=== PATIENT | female | born 1970 | race Caucasian/White ===

== ENCOUNTER → 2016-12-20 | Day surgery (SDC) | payer MEDICARE, MEDICAID ==
[~2016-12-20] MED LIST: BUPIVACAINE HCL 0.5 % INJ/PF 30 ML SDV ONE; METHYLPREDNISOLONE ACETATE INJ 40 MG/1 ML ML ONE
== END ==
LOC: RAD 12:26
PROC: 3E0U33Z Introduction of Anti-inflammatory into Joints, Percutaneous Approach (ICD-10-PCS; principal; 2016-12-20)
DX: M16.0 Bilateral primary osteoarthritis of hip (principal)
CPT/HCPCS: 73501; 20610; 77002; J1020

== ENCOUNTER 2017-01-02 19:37 | Emergency (ER) | payer MEDICARE, MEDICAID ==
[2017-01-02] MEDS ORDERED: AMOXICILLIN TR/POT CLAVULANATE 500-125 MG TAB PO ONE (21:11)
[2017-01-02] MEDS ORDERED: DIPH/PERTUSS(ACELL)/TETANUS VAC/PF 0.5 ML SYR (>=10YO) IM ONE (21:11)
[2017-01-02] MEDS ORDERED: LIDOCAINE 1% INJ-PF (10 MG/ML) 30 ML SDV INJ ONE (21:12)
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
[2017-01-02] MEDS ORDERED: HYDROCODONE/ACETAMINOPHEN 5-325 MG 6 TAB/DSPK PO PRN (21:35)
[2017-01-02 22:58] VITALS: BP 131/86
== END 2017-01-02 22:58 | disposition home or self-care (01) ==
LOC: ER 19:37
PROC: 0HQFXZZ Repair Right Hand Skin, External Approach (ICD-10-PCS; principal; 2017-01-02)
DX: S61.451A Open bite of right hand, initial encounter (principal); W54.0XXA Bitten by dog, initial encounter; F17.210 Nicotine dependence, cigarettes, uncomplicated
CPT/HCPCS: 99283; 90471; 73130; 90715; 12002; A9270 ×2; J3490

== ENCOUNTER 2017-02-03 17:18 | Emergency (ER) | payer MEDICARE, MEDICAID ==
[2017-02-03 17:56] LABS: ABSOLUTE BASOPHILS # (AUTO) 0.1 10^3/uL (0.0-0.2); ABSOLUTE EOSINOPHILS # (AUTO) 0.1 10^3/uL (0.0-0.6); ABSOLUTE LYMPHOCYTES (AUTO) 2.1 10^3/uL (0.5-4.7); ABSOLUTE MONOCYTES (AUTO) 0.7 10^3/uL (0.1-1.4); ABSOLUTE NEUT (AUTO) 7.4 10^3/uL (1.7-8.2); BASOPHILS % (AUTO) 0.5 % (0-2); EOSINOPHILS % (AUTO) 1.3 % (0-6); HEMATOCRIT 45.6 % (36.0-47.0); HEMOGLOBIN 15.4 g/dL (12.0-15.5); HGB HCT DIFFERENCE 0.6; LYMPHOCYTES % (AUTO) 20.3 % (13-45); MEAN CORPUSCULAR HEMOGLOBIN 31.9 pg (27.0-33.4); MEAN CORPUSCULAR HGB CONC 33.7 g/dL (32.0-36.0); MEAN CORPUSCULAR VOLUME 95 fl (80-97); MONOCYTES % (AUTO) 6.8 % (3-13); RED BLOOD COUNT 4.82 10^6/uL (3.72-5.28); RED CELL DISTRIBUTION WIDTH 13.7 % (11.5-14.0); SEGMENTED NEUTROPHILS % (AUTO) 71.1 % (42-78); WHITE BLOOD COUNT 10.4 10^3/uL (4.0-10.5)
[2017-02-03 18:10] LABS: ALANINE AMINOTRANSFERASE 31 U/L (9-52); ALBUMIN 4.1 g/dL (3.5-5.0); ALKALINE PHOSPHATASE 88 U/L (38-126); ANION GAP 11 (5-19); ASPARTATE AMINO TRANSFERASE 21 U/L (14-36); BILIRUBIN,DIRECT 0.4 mg/dL (0.0-0.4); BILIRUBIN,TOTAL 0.6 mg/dL (0.2-1.3); BLOOD UREA NITROGEN 14 mg/dL (7-20); CALCIUM 10.1 mg/dL (8.4-10.2); CARBON DIOXIDE 23 mmol/L (22-30); CHLORIDE 105 mmol/L (98-107); CREATINE KINASE 36 U/L (30-135); CREATININE RESULT 1.06 mg/dL (0.52-1.25); GLUCOSE 213 mg/dL (75-110); POTASSIUM 4.3 mmol/L (3.6-5.0); SODIUM 139.4 mmol/L (137-145); TOTAL PROTEIN 7.2 g/dL (6.3-8.2)
[2017-02-03 18:21] LABS: CREATINE KINASE MB < 0.22 ng/mL (<4.55); TROPONIN I < 0.012 ng/mL
--- NOTE | 2017-02-03 18:22 | EKG REPORT ---
SEVERITY:- BORDERLINE ECG - SINUS TACHYCARDIA BORDERLINE LEFT AXIS DEVIATION NONSPECIFIC LATERAL ST [facility] : Confirmed by: Vishnu Wilder MD 03-Feb-2017 18:21:40
[2017-02-03] MEDS ORDERED: NORMAL SALINE 1000 ML 1,000 ML IV PRN (18:37)
[2017-02-03 18:40] LABS: THYROID STIMULATING HORMONE 1.21 uIU/mL (0.47-4.68)
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
[2017-02-03 20:09] LABS: APPEARANCE,URINE SLIGHTLY-CLOUDY; BILIRUBIN,URINE NEGATIVE (NEGATIVE); GLUCOSE, URINE NEGATIVE (NEGATIVE); KETONES,URINE NEGATIVE (NEGATIVE); LEUKOCYTE ESTERASE,URINE TRACE (NEGATIVE); NITRITE,URINE NEGATIVE (NEGATIVE); PROTEIN,URINE NEGATIVE (NEGATIVE); URINE SPECIFIC GRAVITY 1.014; UROBILINOGEN,URINE NEGATIVE mg/dL (<2.0)
[2017-02-03] MEDS ORDERED: NORMAL SALINE 1000 ML 1,000 ML IV ONE (20:19)
[2017-02-03 21:14] VITALS: BP 114/82
== END 2017-02-03 22:34 | disposition home or self-care (01) ==
LOC: ER 17:18
DX: R42 Dizziness and giddiness (principal); I95.9 Hypotension, unspecified; R00.0 Tachycardia, unspecified; R53.1 Weakness; R09.89 Other specified symptoms and signs involving the circulatory and respiratory systems; J02.9 Acute pharyngitis, unspecified; R51 Headache; I10 Essential (primary) hypertension; M54.9 Dorsalgia, unspecified; G89.29 Other chronic pain; J45.909 Unspecified asthma, uncomplicated; F17.210 Nicotine dependence, cigarettes, uncomplicated; Z91.048 Other nonmedicinal substance allergy status; Z88.8 Allergy status to other drugs, medicaments and biological substances; Z88.7 Allergy status to serum and vaccine; Z88.5 Allergy status to narcotic agent; Z82.49 Family history of ischemic heart disease and other diseases of the circulatory system
CPT/HCPCS: 93005; 99285; 96360; 96361; 36415; 84439; 82553; 82550; 84443; 85025; 80053; 81001; 84484; 85379; 71020; 71275; 93010; J7030

== ENCOUNTER 2017-03-30 01:47 | Emergency (ER) | payer MEDICARE, MEDICAID ==
[2017-03-30] MEDS ORDERED: NORMAL SALINE 1000 ML 1,000 ML IV ONE (04:52)
--- NOTE | 2017-03-30 05:00 | ER Document Report ---
ED General - General Chief Complaint: Low Blood Pressure Stated Complaint: BLOOD PRESSURE PROBLEM Time Seen by Provider: 03/30/17 04:38 Mode of Arrival: Ambulatory Information source: Patient TRAVEL OUTSIDE OF THE [place] IN LAST 30 DAYS: No - HPI Notes: Patient is a 46-year-old female history of pseudo-bulbar affect disorder, anxiety, chronic pain presents emergency department with report that she recently was doubled on her morphine dose and states that she normally takes her evening clonidine and prazosin and goes to sleep, but she was awake and noticed that she felt extremely lightheaded and dizzy. Upright systolic blood pressure was 87/67. Patient takes her clonidine 0.2 mg and prazosin 1 mg for her anxiety state. Patient denies any accidental overdose Or weight loss or fever or other medication changes. She states her morphine was doubled by her commercial painter related to worsening of her chronic lower back pain. Patient also reports a bedbug exposure in her house, and she has been unable to afford the treatment. She states she has multiple skin bites on her hands and forearms, none of which are actively infected. - Related Data Allergies/Adverse Reactions: adhesive tape [Adhesive Tape] Allergy (Verified 01/02/17 20:06) bismuth subsalicylate [From Pepto-Bismol] Allergy (Verified 01/02/17 20:06) indomethacin [From Indocin] Allergy (Verified 01/02/17 20:06) indomethacin sodium [From Indocin] Allergy (Verified 01/02/17 20:06) Influenza Virus Vaccines [Influenza Virus Vaccine] Allergy (Verified 01/02/17 20 :06) oxycodone HCl [From Percocet] Allergy (Verified 01/02/17 20:06) piroxicam [From Feldene] Allergy (Verified 01/02/17 20:06) VOMITING Past Medical History - General Information source: Patient - Social History Smoking Status: Current Every Day Smoker Frequency of alcohol use: None Drug Abuse: None Lives with: Alone Family History: Reviewed & Not Pertinent, Arthritis - ra, CAD, CVA, Hyperlipidemia, Hypertension, Malignancy Patient has suicidal ideation: No Patient has homicidal ideation: No - Past Medical History Cardiac Medical History: Reports: Hx Hypertension Denies: Hx DVT Pulmonary Medical History: Reports: Hx Asthma - "Chemically induced" Neurological Medical History: Reports: Hx Migraine Renal/ Medical History: Denies: Hx Peritoneal Dialysis GI Medical History: Reports: Hx Gastritis, Hx Gastroesophageal Reflux Disease, Hx Colonoscopy, Hx Endoscopy Musculoskeltal Medical History: Reports Hx Arthritis, Reports Hx Musculoskeletal Deformity - Degenerative disc disease, Reports Hx Musculoskeletal Trauma Psychiatric Medical History: Reports: Hx Anxiety, Hx Bipolar Disorder, Hx Depression, Hx Post Traumatic Stress Disorder Traumatic Medical History: Reports: Hx Fractures - Collarbone ankle toe finger boxer fracture and nose Past Surgical History: Reports: Hx Adenoidectomy, Hx Cholecystectomy, Hx Orthopedic Surgery - right hip, bilateral knees, bilateral hips as a child, Hx Tonsillectomy, Other - 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 - Immunizations Immunizations up to date: Yes Hx Diphtheria, Pertussis, Tetanus Vaccination: Yes - 01/02/2017 Review of Systems - Review of Systems Notes: REVIEW OF SYSTEMS: CONSTITUTIONAL : Denies fever, chills, or sweats. Denies recent illness. EENT: Denies eye, ear, throat, or mouth pain or symptoms. Denies nasal or sinus congestion or discharge. Denies throat, tongue, or mouth swelling or difficulty swallowing. CARDIOVASCULAR: Denies chest pain. Denies palpitations or racing or irregular heart beat. Denies ankle edema. RESPIRATORY: Denies cough, cold, or chest congestion. Denies shortness of breath, difficulty breathing, or wheezing. GASTROINTESTINAL: Denies abdominal pain or distention. Denies nausea, vomiting , or diarrhea. Denies blood in vomitus, stools, or per rectum. Denies black, tarry stools. Denies constipation. GENITOURINARY: Denies difficulty urinating, painful urination, burning, frequency, blood in urine, or discharge. FEMALE GENITOURINARY: Denies vaginal bleeding, heavy or abnormal periods, irregular periods. Denies vaginal discharge or odor. MUSCULOSKELETAL: Denies back or neck pain or stiffness. Denies joint pain or swelling. SKIN: Denies rash, lesions or sores. HEMATOLOGIC : Denies easy bruising or bleeding. LYMPHATIC: Denies swollen, enlarged glands. NEUROLOGICAL: Denies confusion or altered mental status. Denies passing out or loss of consciousness. Denies headache. Denies weakness or paralysis or loss of use of either side. Denies problems with gait or speech. Denies sensory loss, numbness, or tingling. Denies seizures. PSYCHIATRIC: Denies stress. Denies depression, suicidal ideation, or homicidal ideation. ALL OTHER SYSTEMS REVIEWED AND NEGATIVE. Dictation was performed using [employer] voice recognition software Physical Exam - Vital signs Vitals: Temp Pulse Resp BP Pulse Ox 97.9 F 109 H 20 115/67 97 03/30/17 01:50 03/30/17 01:50 03/30/17 01:50 03/30/17 01:50 03/30/17 01:50 - Notes Notes: PHYSICAL EXAMINATION: GENERAL: Well-appearing, well-nourished and in no acute distress. HEAD: Atraumatic, normocephalic. EYES: Pupils equal round and reactive to light, extraocular movements intact, conjunctiva are normal. ENT: Nares patent, oropharynx clear without exudates. Moist mucous membranes. NECK: Normal range of motion, supple without lymphadenopathy. No carotid bruits. LUNGS: Breath sounds clear to auscultation bilaterally and equal. No wheezes rales or rhonchi. HEART: Regular rate and rhythm without murmurs ABDOMEN: Soft, nontender, nondistended abdomen. No guarding, no rebound. No masses appreciated. Female : deferred Musculoskeletal: Normal range of motion, no pitting or edema. No cyanosis. NEUROLOGICAL: Cranial nerves grossly intact. Normal speech, normal gait. Normal sensory, motor exams. No cerebellar ataxia. PSYCH: Normal mood, normal affect. SKIN: Warm, Dry, normal turgor. Residual insect bites on the forearms and hands from bedbugs. No active evidence for infection or abscess. Course - Re-evaluation Re-evalutation: 03/30/17 05:02 Blood pressure was 87/67 on the upright exam. The patient felt lightheaded associated with this. Patient will be rehydrated with normal saline, and must rule out anemia versus electrolyte imbalance versus urinary tract infection versus dehydration as etiology. There is no bradycardia, and suggestion is that the patient needs to be cut back on her clonidine and prazosin and scaled back on her morphine related to secondary hypotension. - Vital Signs Vital signs: Temp Pulse Resp BP Pulse Ox 97.9 F 75 20 101/65 97 03/30/17 01:50 03/30/17 03:40 03/30/17 01:50 03/30/17 03:40 03/30/17 01:50 - Laboratory Result Diagrams: 03/30/17 05:19 03/30/17 05:19 Discharge - Discharge Clinical Impression: Hypotension Qualifiers: Hypotension type: unspecified hypotension type Qualified Code(s): I95.9 - Hypotension, unspecified Bedbug bite Qualifiers: Encounter type: initial encounter Qualified Code(s): W57.XXXA - Bitten or stung by nonvenomous insect and other nonvenomous arthropods, initial encounter Condition: Stable Disposition: HOME, SELF-CARE Instructions: Hypotension ([facility]) Additional Instructions: Cut back on your prazosin from 1 mg in the evening to 0.5 mg in the evening. Cut back on your clonidine from 0.2 mg in the evening to 0.1 mg in the evening. Recommend cutting back your morphine dose due to hypotension. Drink plenty of fluids. Stand up slowly. Referrals: VERENICE BROWN PA-C [Primary Care Provider] - Follow up as needed
[2017-03-30 05:36] LABS: ABSOLUTE EOSINOPHILS # (AUTO) 0.2 10^3/uL (0.0-0.6); ABSOLUTE LYMPHOCYTES (AUTO) 2.5 10^3/uL (0.5-4.7); ABSOLUTE MONOCYTES (AUTO) 0.7 10^3/uL (0.1-1.4); ABSOLUTE NEUT (AUTO) 4.9 10^3/uL (1.7-8.2); BASOPHILS % (AUTO) 0.6 % (0-2); EOSINOPHILS % (AUTO) 2.7 % (0-6); HEMOGLOBIN 14.6 g/dL (12.0-15.5); HGB HCT DIFFERENCE -0.2; LYMPHOCYTES % (AUTO) 29.6 % (13-45); MEAN CORPUSCULAR HEMOGLOBIN 31.7 pg (27.0-33.4); MEAN CORPUSCULAR HGB CONC 33.1 g/dL (32.0-36.0); MEAN CORPUSCULAR VOLUME 96 fl (80-97); MONOCYTES % (AUTO) 7.9 % (3-13); RED CELL DISTRIBUTION WIDTH 13.1 % (11.5-14.0); SEGMENTED NEUTROPHILS % (AUTO) 59.2 % (42-78); WHITE BLOOD COUNT 8.4 10^3/uL (4.0-10.5)
[2017-03-30 05:51] LABS: ALANINE AMINOTRANSFERASE 29 U/L (9-52); ALBUMIN 4.2 g/dL (3.5-5.0); ALKALINE PHOSPHATASE 94 U/L (38-126); ANION GAP 9 (5-19); ASPARTATE AMINO TRANSFERASE 28 U/L (14-36); BILIRUBIN,DIRECT 0.4 mg/dL (0.0-0.4); BILIRUBIN,TOTAL 0.5 mg/dL (0.2-1.3); BLOOD UREA NITROGEN 10 mg/dL (7-20); CARBON DIOXIDE 28 mmol/L (22-30); CHLORIDE 102 mmol/L (98-107); CREATININE RESULT 0.91 mg/dL (0.52-1.25); GLUCOSE 100 mg/dL (75-110); MAGNESIUM 2.3 mg/dL (1.6-2.3); POTASSIUM 4.2 mmol/L (3.6-5.0); SODIUM 139.3 mmol/L (137-145); TOTAL PROTEIN 8.1 g/dL (6.3-8.2)
[2017-03-30 06:21] LABS: THYROID STIMULATING HORMONE 1.68 uIU/mL (0.47-4.68)
[2017-03-30 07:07] LABS: APPEARANCE,URINE CLEAR; BILIRUBIN,URINE NEGATIVE (NEGATIVE); GLUCOSE, URINE NEGATIVE (NEGATIVE); KETONES,URINE NEGATIVE (NEGATIVE); LEUKOCYTE ESTERASE,URINE NEGATIVE (NEGATIVE); NITRITE,URINE NEGATIVE (NEGATIVE); PROTEIN,URINE NEGATIVE (NEGATIVE); URINE SPECIFIC GRAVITY 1.001; UROBILINOGEN,URINE NEGATIVE mg/dL (<2.0)
[2017-03-30 08:07] VITALS: BP 106/70
== END 2017-03-30 08:07 | disposition home or self-care (01) ==
LOC: ER 01:47
DX: I95.9 Hypotension, unspecified (principal); S50.869A Insect bite (nonvenomous) of unspecified forearm, initial encounter; S60.569A Insect bite (nonvenomous) of unspecified hand, initial encounter; W57.XXXA Bitten or stung by nonvenomous insect and other nonvenomous arthropods, initial encounter; F41.9 Anxiety disorder, unspecified; M54.5 Low back pain; R42 Dizziness and giddiness; G89.29 Other chronic pain; I10 Essential (primary) hypertension; J45.909 Unspecified asthma, uncomplicated; F17.200 Nicotine dependence, unspecified, uncomplicated; Z79.891 Long term (current) use of opiate analgesic; Z79.899 Other long term (current) drug therapy; Z91.048 Other nonmedicinal substance allergy status; Z88.8 Allergy status to other drugs, medicaments and biological substances; Z88.7 Allergy status to serum and vaccine; Z88.5 Allergy status to narcotic agent
CPT/HCPCS: 99284; 96361; 36415; 84439; 83735; 84443; 85025; 81025; 80053; 81001; J7030

== ENCOUNTER → 2017-05-01 | Outpatient (CLI) | payer MEDICARE, MEDICAID ==
--- NOTE | 2017-05-02 08:29 | RADIOLOGY REPORT (SQ) ---
EXAM DESCRIPTION: MRI HEAD COMBO COMPLETED DATE/TIME: 05/01/2017 8:21 pm REASON FOR STUDY: Obstructive sleep apnea (adult),Repeated falls,Unspecified abnormalities of G47.33 OBSTRUCTIVE SLEEP APNEA (ADULT) (PEDIATRIC) COMPARISON: None. TECHNIQUE: Multiplanar imaging includes noncontrasted T1, T2, FLAIR, diffusion with ADC map and post gadolinium contrast T1 sequences. Images stored on PACS. CONTRAST TYPE AND DOSE: 20 mL Multihance. RENAL FUNCTION: GFR > 60. LIMITATIONS: None. FINDINGS: ANATOMY: No anomalies. Normal vascular flow voids. Pituitary fossa normal. CSF SPACES: Normal in size and contour. No hemorrhage. CEREBRUM: Sulci and gyri normal in size and contour. Normal white matter signal on FLAIR imaging. No evidence of hemorrhage, mass, or extraaxial fluid collection. No abnormal enhancement post contrast. POSTERIOR FOSSA: No signal alteration. No hemorrhage. No edema, masses, or mass effect. Internal angus tory canals, cerebellopontine angles, mastoids normal. No enhancing lesions. No abnormal enhancement post contrast. DIFFUSION IMAGING: Negative for acute or subacute infarction. ORBITS: No masses. Globes normal. PARANASAL SINUSES: Small amount of fluid noted within the the right mastoid air cells. Paranasal sin uses are otherwise clear. OTHER: No other significant finding. IMPRESSION: No acute intracranial abnormality identified. No enhancing mass lesions. No significan t abnormality identified. Small mild fluid noted in the right mastoid air cells. EVIDENCE OF ACUTE STROKE: NO. TECHNICAL DOCUMENTATION: JOB ID: [id number] [employer]- All Rights Reserved
== END ==
LOC: RAD 18:49
PROVIDERS: ATTEND Specialist
DX: G47.33 Obstructive sleep apnea (adult) (pediatric) (principal); R29.6 Repeated falls; R26.9 Unspecified abnormalities of gait and mobility
CPT/HCPCS: 70553; A9577

== ENCOUNTER → 2017-05-24 | Outpatient (CLI) | payer MEDICARE, MEDICAID ==
--- NOTE | 2017-05-24 10:17 | RADIOLOGY REPORT (SQ) ---
EXAM DESCRIPTION: SHOULDER LEFT 2 OR MORE VIEWS COMPLETED DATE/TIME: 05/24/2017 8:40 am REASON FOR STUDY: PAIN IN LEFT SHOULDER M25.512 PAIN IN LEFT SHOULDER COMPARISON: CT angio chest 02/03/2017 NUMBER OF VIEWS: Three views. TECHNIQUE: Internal rotation, external rotation, and Y view images acquired of the left shoulder. LIMITATIONS: None. FINDINGS: MINERALIZATION: Osteopenic BONES: No acute fracture or dislocation. No worrisome bone lesions. JOINTS: No glenohumeral dislocation. No widening or bulky bony spurring at the left acromioclavicula r joint. VISUALIZED LUNGS AND RIBS: No pneumothorax. No rib fracture. SOFT TISSUES: No radiopaque foreign body. OTHER: No other significant finding. IMPRESSION: NEGATIVE STUDY OF THE LEFT SHOULDER. NO RADIOGRAPHIC EVIDENCE OF ACUTE INJURY. TECHNICAL DOCUMENTATION: JOB ID: [id number] [employer]- All Rights Reserved
== END ==
LOC: OD 08:27
PROVIDERS: ATTEND Physician Assistant
DX: M25.512 Pain in left shoulder (principal)

== ENCOUNTER → 2017-07-06 | Outpatient (CLI) | payer MEDICARE, MEDICAID ==
--- NOTE | 2017-07-07 02:07 | EKG REPORT ---
SEVERITY:- ABNORMAL ECG - SINUS TACHYCARDIA NONSPECIFIC T ABNORMALITIES, LATERAL LEADS : Confirmed by: Merissa Carey MD 07-Jul-2017 02:06:53
== END ==
LOC: OD 15:04
PROVIDERS: ATTEND Physician Assistant
DX: R00.0 Tachycardia, unspecified (principal)
CPT/HCPCS: 93005; 93010

== ENCOUNTER 2017-07-13 18:59 | Emergency (ER) | payer MEDICARE, MEDICAID ==
[2017-07-13 19:02] VITALS: BP 126/81
--- NOTE | 2017-07-13 19:46 | ER Document Report ---
ED Extremity Problem, Lower - General Chief Complaint: Knee Pain Stated Complaint: LEFT KNEE PAIN Time Seen by Provider: 07/13/17 19:34 Mode of Arrival: Ambulatory Information source: Patient Notes: 46-year-old female presents to ED for complaint of left knee pain that started this morning when she woke up. She denies any injuries to the knee. There is a catch in the knee when she bends and straightens her knee. She has had previous surgeries to this knee. TRAVEL OUTSIDE OF THE [place] IN LAST 30 DAYS: No - HPI Patient complains to provider of: Pain, Swelling. No: Injury Location: Knee - Left Occurred: This morning Where: Home, Indoors Onset/Duration: Sudden Quality of pain: Achy, Sharp Severity: Moderate Pain Level: 4 Recent injury: No Associated symptoms: Painful ambulation, Other - Feel pop when she straightens her knee Exacerbated by: Movement, Walking Relieved by: Elevation, Ice - Related Data Allergies/Adverse Reactions: adhesive tape [Adhesive Tape] Allergy (Verified 07/13/17 19:00) bismuth subsalicylate [From Pepto-Bismol] Allergy (Verified 07/13/17 19:00) indomethacin [From Indocin] Allergy (Verified 07/13/17 19:00) indomethacin sodium [From Indocin] Allergy (Verified 07/13/17 19:00) Influenza Virus Vaccines [Influenza Virus Vaccine] Allergy (Verified 07/13/17 19 :00) oxycodone HCl [From Percocet] Allergy (Verified 07/13/17 19:00) piroxicam [From Feldene] Allergy (Verified 07/13/17 19:00) VOMITING Past Medical History - General Information source: Patient - Social History Smoking Status: Former Smoker Cigarette use (# per day): No Chew tobacco use (# tins/day): No Smoking Education Provided: No Frequency of alcohol use: Rare Drug Abuse: None Occupation: None Lives with: Friend Family History: Arthritis - ra, CAD, CVA, Hyperlipidemia, Hypertension, Malignancy. denies: COPD, Thyroid Disfunction Patient has suicidal ideation: No Patient has homicidal ideation: No - Past Medical History Cardiac Medical History: Reports: Hx Hypertension Pulmonary Medical History: Reports: Hx Asthma - "Chemically induced", Hx Bronchitis, Hx Pneumonia EENT Medical History: Reports: None Neurological Medical History: Reports: Hx Migraine Endocrine Medical History: Reports: None Renal/ Medical History: Reports: None Malignancy Medical History: Reports: None GI Medical History: Reports: Hx Gastritis, Hx Gastroesophageal Reflux Disease Musculoskeltal Medical History: Reports Hx Arthritis, Reports Hx Musculoskeletal Deformity - Degenerative disc disease, Reports Hx Musculoskeletal Trauma Skin Medical History: Reports None Psychiatric Medical History: Reports: Hx Anxiety, Hx Attention Deficit Hyperactivity Disorder, Hx Bipolar Disorder, Hx Depression, Hx Obsessive Compulsive Disorder, Hx Post Traumatic Stress Disorder Traumatic Medical History: Reports: Hx Fractures - Collarbone ankle toe finger boxer fracture and nose, Hx Traumatic Brain Injury Past Surgical History: Reports: Hx Adenoidectomy, Hx Cholecystectomy, Hx Oral Surgery - Most wisdom teeth pulled one wisdom tooth surgically removed, Hx Orthopedic Surgery - right hip, bilateral knees, bilateral hips as a child, Hx Tonsillectomy, Other - 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 - Immunizations Immunizations up to date: Yes Hx Diphtheria, Pertussis, Tetanus Vaccination: Yes - 01/02/2017 Review of Systems - Review of Systems Constitutional: No symptoms reported EENT: No symptoms reported Cardiovascular: No symptoms reported Respiratory: No symptoms reported Gastrointestinal: No symptoms reported Genitourinary: No symptoms reported Female Genitourinary: No symptoms reported Musculoskeletal: Joint pain - Left knee pain swelling, Joint swelling Skin: No symptoms reported Hematologic/Lymphatic: No symptoms reported Neurological/Psychological: No symptoms reported Physical Exam - Vital signs Vitals: Temp Pulse Resp BP Pulse Ox 98.5 F 107 H 18 126/81 H 96 07/13/17 19:00 07/13/17 19:00 07/13/17 19:00 07/13/17 19:00 07/13/17 19:00 Interpretation: Normal - General General appearance: Appears well, Alert - HEENT Head: Normocephalic, Atraumatic Eyes: Normal Pupils: PERRL - Respiratory Respiratory status: No respiratory distress Chest status: Nontender Breath sounds: Normal Chest palpation: Normal - Cardiovascular Rhythm: Regular Heart sounds: Normal auscultation Murmur: No - Abdominal Inspection: Normal Distension: No distension Bowel sounds: Normal Tenderness: Nontender Organomegaly: No organomegaly - Back Back: Normal, Nontender - Extremities General upper extremity: Normal inspection, Nontender, Normal color, Normal ROM , Normal temperature General lower extremity: Normal color, Normal temperature, Normal weight bearing. No: Dionne's sign Knee: Tender, Pain with ROM, Patellar tendon intact, Other - Popping felt when straightened left knee. No: Abrasion, Deformity, Dislocation, Drawer's test instability, Instability, Joint effusion, Laceration, Laxity with valgus stress , Laxity with varus stress, Popliteal fossa tender - Neurological Neuro grossly intact: Yes Cognition: Normal Orientation: AAOx4 Sugey Coma Scale Eye Opening: Spontaneous Sugey Coma Scale Verbal: Oriented Sugey Coma Scale Motor: Obeys Commands Sugey Coma Scale Total: 15 Speech: Normal Motor strength normal: LUE, RUE, LLE, RLE Sensory: Normal - Psychological Associated symptoms: Normal affect, Normal mood - Skin Skin Temperature: Warm Skin Moisture: Dry Skin Color: Normal Course - Re-evaluation Re-evalutation: 07/13/17 21:11 Patient states she has got pain medicine and ibuprofen at home she does not need either of these. Patient states she is able to walk on her knee and does not need crutches. Patient will follow up with her own orthopedic who she is supposed to see next week. - Vital Signs Vital signs: Temp Pulse Resp BP Pulse Ox 98.5 F 107 H 18 126/81 H 96 07/13/17 19:00 07/13/17 19:00 07/13/17 19:00 07/13/17 19:00 07/13/17 19:00 - Diagnostic Test Radiology reviewed: Image reviewed, Reports reviewed Discharge - Discharge Clinical Impression: Left knee arthritis tricompartmental Condition: Stable Disposition: HOME, SELF-CARE Additional Instructions: Arthritis Your symptoms are due to arthritis. Arthritis is an inflammation of the joints. There are many types -- osteoarthritis (due to "wear and tear"), auto- immmune arthritis (such as rheumatoid, lupus, Madhavi's, and others), and crystal -induced arthritis (such as gout and pseudogout). The physician's examination, combined with laboratory tests, will determine the cause of your arthritis. All types of arthritis are treated with antiinflammatory medications. Other medication may be required for special types of arthritis, or if your problem does not respond to the antiinflammatory medicine. Local warmth may be helpful. Move the involved joints through the full range of motion daily. Mild exercise is usually still possible for most persons with arthritis (ask your physician). Swimming provides good exercise without damaging the joints. Contact the physician if you are worsening in any way. You were seen today for left knee pain and swelling. You have according to the x-ray arthritis in this knee with the effusion. You will need to take your arthritis medicine for the pain FOLLOW-UP CARE: If you have been referred to a physician for follow-up care, call the physician s office for an appointment as you were instructed or within the next two days. If you experience worsening or a significant change in your symptoms, notify the physician immediately or return to the Emergency Department at any time for re-evaluation. Forms: Elevated Blood Pressure Referrals: VERENICE BROWN PA-C [Primary Care Provider] - Follow up as needed DAVID PATEL MD [ACTIVE STAFF] - Follow up as needed
--- NOTE | 2017-07-13 20:13 | RADIOLOGY REPORT (SQ) ---
EXAM DESCRIPTION: KNEE LEFT 4 VIEW COMPLETED DATE/TIME: 07/13/2017 8:03 pm REASON FOR STUDY: pain swelling COMPARISON: None. NUMBER OF VIEWS: Four views. TECHNIQUE: AP, lateral, and both oblique radiographic images acquired of the left knee. LIMITATIONS: None. FINDINGS: MINERALIZATION: Normal. BONES: No acute fracture or dislocation. No worrisome bone lesions. JOINT: Mild osteoarthritis of the patellofemoral and medial tibiofemoral compartments. Small to mode rate joint effusion. SOFT TISSUES: No soft tissue swelling. No radio-opaque foreign body. OTHER: No other significant finding. IMPRESSION: MILD TRICOMPARTMENTAL OSTEOARTHRITIS WITH SMALL TO MODERATE JOINT EFFUSION. NO ACUTE OS SEOUS ABNORMALITY. TECHNICAL DOCUMENTATION: JOB ID: [id number] [employer]- All Rights Reserved
== END 2017-07-13 20:55 | disposition home or self-care (01) ==
LOC: ER 18:59
DX: M25.562 Pain in left knee (principal); M17.12 Unilateral primary osteoarthritis, left knee; I10 Essential (primary) hypertension; Z90.49 Acquired absence of other specified parts of digestive tract
CPT/HCPCS: 99283

== ENCOUNTER → 2017-09-20 | Day surgery (SDC) | payer MEDICARE, MEDICAID ==
--- NOTE | 2017-09-20 15:30 | RADIOLOGY REPORT (SQ) ---
EXAM DESCRIPTION: ARTHRO SHOULDER; FLUORO/NEEDLE PLACEMENT COMPLETED DATE/TIME: 09/20/2017 2:53 pm REASON FOR STUDY: BURSITIS OF LEFT SHOULDER M75.52 BURSITIS OF LEFT SHOULDER COMPARISON: None. FLUOROSCOPY TIME: 44 seconds 2 digital left shoulder radiographic images saved to PACS. LIMITATIONS: None. PROCEDURE: Procedure, risks, benefits and alternatives explained to patient who then gave written co nsent. The posterior left shoulder was marked and a time out was called for correct procedure verific ation. Posterior entry site marked using fluoroscopic guidance. Shoulder prepped and draped using s terile technique. Local anesthesia achieved using 1% lidocaine injection. Hypodermic needle introdu brandon into the joint space under direct fluoroscopic visualization. Non-ionic contrast instilled to con firm intra-articular position. Dilute gadolinium solution then injected. Needle removed and entry si te covered with sterile bandage. No immediate complications noted. TECHNIQUE: Digital images acquired during fluoroscopy and stored on PACS. Patient immediately take n to the MR suite for additional imaging. INJECTION LOCATION: Posterior left shoulder. CONTRAST TYPE AND AMOUNT: 2 mL of Isovue-300 was injected to confirm intra-articular needle placement followed by 9 mL of dilute gadolinium for MR arthrogram IMPRESSION: SUCCESSFUL NEEDLE PLACEMENT AND INJECTION FOR LEFT SHOULDER MR ARTHROGRAM USING POSTERIO R APPROACH. COMMENT: Quality ID [id number]: Final reports for procedures using fluoroscopy that document radiation exp osure indices, or exposure time and number of fluorographic images (if radiation exposure indices are not available) TECHNICAL DOCUMENTATION: JOB ID: [id number] [employer]- All Rights Reserved
--- NOTE | 2017-09-20 16:38 | RADIOLOGY REPORT (SQ) ---
EXAM DESCRIPTION: MRI LT UPPER JOINT WITH COMPLETED DATE/TIME: 09/20/2017 3:36 pm REASON FOR STUDY: BURSITIS OF LEFT SHOULDER M75.52 BURSITIS OF LEFT SHOULDER COMPARISON: None. TECHNIQUE: Left shoulder images acquired and stored on PACS. Oblique coronal, oblique sagittal, and axial imaging to include fat sensitive sequences as T1, water sensitive sequences as FST2/STIR, and c ontrast sensitive sequences as FST1. LIMITATIONS: Positioning. Excessive patient movement in the scanner. FINDINGS: JOINT DISTENTION: Adequate distention for interpretation. Contrast in the subacromial bur sa. BONE MARROW AND CORTEX: Normal. No significant osteophytes. No edema or defects. AC JOINT: Type 1 acromion. Mild AC joint arthropathy. GLENOHUMERAL JOINT: Intact. ROTATOR CUFF: Partial width full-thickness tear of the supraspinatus. Increase intrasubstance signal in the infraspinatus. Subscapularis intact. Teres minor intact. LABRUM AND BICEPS LABRAL COMPLEX: Increased signal in the superior labrum suspicious for a slap tear. This is difficult to further characterize due to the degree of motion. No obvious significant exte nsion into the biceps. Distal biceps intact. INFERIOR LABRAL COMPLEX: Intact. ADJACENT SOFT TISSUES: No masses or nodes. OTHER: No other significant finding. IMPRESSION: Technical limitations due to considerable motion. Partial width full-thickness tear of the supraspinatus. Intrasubstance tear infraspinatus. Slap tear without significant extension into the biceps. TECHNICAL DOCUMENTATION: JOB ID: [id number] [employer]- All Rights Reserved
== END ==
LOC: RAD 14:02
PROVIDERS: ATTEND Orthopaedic Surgery
PROC: BP09ZZZ Plain Radiography of Left Shoulder (ICD-10-PCS; principal; 2017-09-20)
DX: M75.52 Bursitis of left shoulder (principal); M75.122 Complete rotator cuff tear or rupture of left shoulder, not specified as traumatic; S43.432A Superior glenoid labrum lesion of left shoulder, initial encounter; X58.XXXA Exposure to other specified factors, initial encounter
CPT/HCPCS: 73222; 73040; 77002; A9576

== ENCOUNTER → 2017-11-12 | Outpatient (CLI) | payer MEDICARE, MEDICAID ==
--- NOTE | 2017-11-13 06:20 | WOMENS IMAGING REPORT ---
EXAM DESCRIPTION: 3D SCREENING MAMMO BILAT COMPLETED DATE/TIME: 11/12/2017 10:56 am REASON FOR STUDY: ROUTINE SCREENING; Z12.31 Z12.31 ENCNTR SCREEN MAMMOGRAM FOR MALIGNANT NEOPLASM O F VON COMPARISON: 03/23/2016. TECHNIQUE: Standard craniocaudal and mediolateral oblique views of each breast recorded using digita l acquisition and breast tomosynthesis. LIMITATIONS: None. FINDINGS: No masses, calcifications or architectural distortion. No areas of suspicion. Read with the assistance of CAD. .[facility] - R2 Cenova Version 1.3 .[facility] Imaging - R2 Cenova Version 1.3 .[facility] Imaging - R2 Cenova Version 2.4 .[facility] [place] Cenova Version 2.4 .[facility] - R2 [employer] Version 9.2 IMPRESSION: NORMAL MAMMOGRAM. BIRADS 1. BREAST DENSITY: a. The breasts are almost entirely fatty. BIRAD: 1 NEGATIVE RECOMMENDATION: ROUTINE SCREENING COMMENT: The patient has been notified of the results by letter per SA requirements. Additional no tification policies are in place for contacting patient with suspicious or incomplete findings. Quality ID #225: The [employer] recommends an annual screening mammogram for women aged 40 years or over. This facility utilizes a reminder system to ensure that all patients receive reminder letters, and/or direct phone calls for appointments. This includes reminders for routine scr eening mammograms, diagnostic mammograms, or other Breast Imaging Interventions when appropriate. Th is patient will be placed in the appropriate reminder system. The [employer] (ACR) has developed recommendations for screening MRI of the breast s in certain patient populations, to be used in conjunction with mammography. Breast MRI surveillanc e may be appropriate for women with more than 20% lifetime risk of developing breast cancer as deter mined by genetic testing, significant family history of the disease, or history of mantle radiation f or Hodgkins Disease. ACR Practice Guidelines 2008. DBT Technology DBT is a type of tomographic mammography. With conventional mammography, overlapping breast tissue ma y make lesions difficult to detect, even with good compression. DBT uses an x-ray tube that rotates a round the breast, taking images at different angles. These images are then combined to create thin sl ices of the breast that the radiologist can view as a 3D reconstruction. The [employer] unit can perform full-field digital mammograms (2D imaging); or DBT (3D imaging); or both, in a combination mode that quickly performs both the mammogram and the tomosynthesis scan while the breast is still compressed. PQRS 6045F: Fluoroscopic imaging is not utilized for breast tomosynthesis. TECHNICAL DOCUMENTATION: FINDING NUMBER: (1) ASSESSMENT: (1) JOB ID: [id number] [employer]- All Rights Reserved
== END ==
LOC: WI 10:28
PROVIDERS: ATTEND Physician Assistant
DX: Z12.31 Encounter for screening mammogram for malignant neoplasm of breast (principal)
CPT/HCPCS: 77063; 77067

== ENCOUNTER 2017-11-20 08:07 | Day surgery (SDC) | payer MEDICARE, MEDICAID ==
[2017-11-14 10:00] LABS: APPEARANCE,URINE SLIGHTLY-CLOUDY; BILIRUBIN,URINE NEGATIVE (NEGATIVE); COLOR,URINE YELLOW; GLUCOSE, URINE NEGATIVE (NEGATIVE); KETONES,URINE NEGATIVE (NEGATIVE); LEUKOCYTE ESTERASE,URINE LARGE (NEGATIVE); NITRITE,URINE NEGATIVE (NEGATIVE); PROTEIN,URINE NEGATIVE (NEGATIVE); URINE SPECIFIC GRAVITY 1.019; UROBILINOGEN,URINE NEGATIVE mg/dL (<2.0)
[2017-11-14 10:44] LABS: ABSOLUTE EOSINOPHILS # (AUTO) 0.3 10^3/uL (0.0-0.6); ABSOLUTE LYMPHOCYTES (AUTO) 2.6 10^3/uL (0.5-4.7); ABSOLUTE MONOCYTES (AUTO) 0.8 10^3/uL (0.1-1.4); ABSOLUTE NEUT (AUTO) 5.8 10^3/uL (1.7-8.2); BASOPHILS % (AUTO) 0.3 % (0-2); EOSINOPHILS % (AUTO) 3.1 % (0-6); HEMATOCRIT 42.1 % (36.0-47.0); HEMOGLOBIN 14.2 g/dL (12.0-15.5); LYMPHOCYTES % (AUTO) 27.4 % (13-45); MEAN CORPUSCULAR HEMOGLOBIN 31.1 pg (27.0-33.4); MEAN CORPUSCULAR HGB CONC 33.6 g/dL (32.0-36.0); MEAN CORPUSCULAR VOLUME 93 fl (80-97); MONOCYTES % (AUTO) 8.5 % (3-13); PLATELET COUNT 258 10^3/uL (150-450); RED BLOOD COUNT 4.54 10^6/uL (3.72-5.28); RED CELL DISTRIBUTION WIDTH 12.9 % (11.5-14.0); SEGMENTED NEUTROPHILS % (AUTO) 60.7 % (42-78); TOTAL CELLS COUNTED % (AUTO) 100 %; WHITE BLOOD COUNT 9.6 10^3/uL (4.0-10.5)
[2017-11-14 11:07] LABS: ANION GAP 8 (5-19); BLOOD UREA NITROGEN 15 mg/dL (7-20); CALCIUM 11.1 mg/dL (8.4-10.2); CARBON DIOXIDE 26 mmol/L (22-30); CHLORIDE 103 mmol/L (98-107); GLUCOSE 101 mg/dL (75-110); POTASSIUM 5.1 mmol/L (3.6-5.0); SODIUM 137.4 mmol/L (137-145)
--- NOTE | 2017-11-14 11:33 | RADIOLOGY REPORT (SQ) ---
EXAM DESCRIPTION: CHEST PA/LATERAL COMPLETED DATE/TIME: 11/14/2017 10:17 am REASON FOR STUDY: PRE OP COMPARISON: [address] TECHNIQUE: Frontal and lateral radiographic views of the chest acquired. NUMBER OF VIEWS: Two view. LIMITATIONS: None. FINDINGS: LUNGS AND PLEURA: Chronic calcified nodules in the right lung. Chronic calcified hilar no kellen. No developing opacities or acute abnormality. MEDIASTINUM AND HILAR STRUCTURES: No masses or contour abnormalities. HEART AND VASCULAR STRUCTURES: Heart normal size. No evidence for failure. BONES: No acute findings. HARDWARE: None in the chest. OTHER: No other significant finding. IMPRESSION: Evidence of previous granulomatous disease, chronic change. No acute or suspicious find ings. TECHNICAL DOCUMENTATION: JOB ID: [id number] [employer]- All Rights Reserved
--- NOTE | 2017-11-15 08:55 | EKG REPORT ---
SEVERITY:- NORMAL ECG - SINUS RHYTHM : Confirmed by: Mika Byrd 15-Nov-2017 08:54:45
[~2017-11-20 08:07] MED LIST changes: -BUPIVACAINE HCL 0.5 % INJ/PF 30 ML SDV ONE; +CEFAZOLIN 2 GM/D5W RTU 2 GM/50 ML RTUPB IV PRN; +LACTATED RINGERS 1000 ML IV PRN; +LIDOCAINE 0.5% INJ-PF (5 MG/ML) 50 ML SDV SUBCUT PRN; -METHYLPREDNISOLONE ACETATE INJ 40 MG/1 ML ML ONE; +RINGERS SOLUTION,LACTATED 1,000 ML IV PRN
[2017-11-20] MEDS ORDERED: FAMOTIDINE INJ/PF 20 MG/2 ML SDV IV ONE (09:11)
[2017-11-20] MEDS ORDERED: METOCLOPRAMIDE HCL INJ/PF 10 MG/2 ML SDV ONE (09:12)
[2017-11-20] MEDS ORDERED: ALBUTEROL SULFATE 0.083% NEB 2.5 MG/3 ML AMPUL NEB ONE (09:18)
[2017-11-20] MEDS ORDERED: MIDAZOLAM 2 MG/2 ML INJ ONE ×3 (09:24→11:31)
[2017-11-20] MEDS ORDERED: SCOPOLAMINE HYDROBROMIDE 1.5 MG PATCH.TD72 ONE (09:25)
[2017-11-20] MEDS ORDERED: BUPIVACAINE HCL 0.5 % INJ/PF 30 ML SDV ONE (09:48)
[2017-11-20] MEDS ORDERED: EPINEPHRINE INJ/PF 1 MG/1 ML AMPULE ONE (09:48)
[2017-11-20] MEDS ORDERED: HYDROMORPHONE HCL INJ/PF 2 MG/ML AMPULE ONE (10:13)
[2017-11-20] MEDS ORDERED: FENTANYL CITRATE INJ/PF 250 MCG/5 ML AMPULE ONE (10:13)
[2017-11-20] MEDS ORDERED: ACETAMINOPHEN 100 ML IV ONE (10:14)
[2017-11-20] MEDS ORDERED: PROPOFOL INJ 200 MG/20 ML VIAL IV ONE (10:14)
[2017-11-20] MEDS ORDERED: DIPHENHYDRAMINE HCL 50 MG/ML VIAL IV PRN (12:10)
[2017-11-20] MEDS ORDERED: MEPERIDINE HCL/PF INJ 25 MG/1 ML DISP.SYRIN IV PRN (12:10)
[2017-11-20] MEDS ORDERED: PROMETHAZINE HCL INJ 25 MG/1 ML VIAL IV PRN (12:10)
[2017-11-20] MEDS ORDERED: FENTANYL CITRATE INJ/PF 100 MCG/2 ML AMPUL IV PRN ×3 (12:10)
--- NOTE | 2017-11-20 13:57 | PDOC DISCHARGE SUMMARY ---
Discharge Summary (SDC) - Discharge Final Diagnosis: Left shoulder rotator cuff tear Date of Surgery: 11/20/17 Condition: Good Treatment or Instructions: Schedule Follow Up w/ Dr. Alirio Rodriguez @ [facility] for Surgery to be seen in 10-14 days or as scheduled [place]: [place]: [place]: May remove dressing on postop day #3, keep incision covered and dry. Ice and elevate May begin finger, wrist and elbow range of motion May remove sling for hygiene purposes Stool softener of choice when on pain medication. Continue pain medication as prescribed by pain management physician Prescriptions: Ketorolac Tromethamine [Toradol 10 mg Tablet] 10 mg PO Q8HP PRN #10 tablet PRN Reason: Referrals: VERENICE BROWN PA-C [Primary Care Provider] - Discharge Diet: As Tolerated Respiratory Treatments at Home: Deep Breathing/Coughing Discharge Activity: No Lifting Over 10 Pounds, No Lifting/Push/Pulling Report the Following to Your Physician Immediately: Unusual Bleeding, Redness, Swelling, Warmth, Increased Soreness, Numbness, Tingling Sensation
--- NOTE | 2017-11-20 14:02 | Operative Report ---
Operative Report DATE OF SURGERY: 11/20/17 PREOPERATIVE DIAGNOSIS: Left shoulder rotator cuff tear POSTOPERATIVE DIAGNOSIS: Same OPERATION: Left shoulder arthroscopy with subacromial decompression/ acromioplasty, arthroscopic rotator cuff repair with subpectoral biceps tenodesis SURGEON: SALEEM ALVAREZ ANESTHESIA: GA COMPLICATIONS: None ESTIMATED BLOOD LOSS: Minimal PROCEDURE: Indication for above procedure: Pleasant 46-year-old female sent to my office with left shoulder discomfort. We attempted conservative measures including activity modification, physical therapy and multiple injections which provided short but not long-term relief. MRI was then obtained demonstrating partial width but full-thickness rotator cuff tear. At that point we discussed treatment options including operative versus nonoperative intervention. Risks and benefits were explained patient verbalized understanding consented for the procedure. Procedure In Detail: Patient was seen and evaluated in the preoperative holding area. The LEFT upper extremity was initialized and marked. Patient received 2g of Ancef IV for bacterial prophylaxis. Patient was taken back to the operative room where transferred to the operative table and placed under general anesthesia. Once they were adequately anesthetized patient was placed in a beachchair position her cervical spine was placed in neutral position bilateral lower extremities carefully padded and nonoperative right upper extremity. A surgical team debriefing was performed ensuring all instrumentation was available, the surgical procedure was discussed with possible concerns reviewed. The upper extremity was prepped with ChloraPrep and draped in a sterile fashion. A timeout was done identifying correct patient, procedure and extremity everyone in attendance agree with this and verbalized no concerns. Posterior lateral portal was established. Arthroscope introduced into the glenohumeral joint. Via triangulation anterior portal was established. There was evidence of significant intra-articular biceps pathology with a SLAP tear which extended into the intra-articular biceps. Biceps tenotomy was performed and later to be converted to a tenodesis. I carefully debrided the labrum. Patient had significant anterior synovitis and a synovectomy was performed. Inspection of the undersurface the rotator cuff demonstrated intact fibers of the infraspinatus with fraying of the anterior aspect of the supraspinatus. No full-thickness tear was appreciated intra-articularly. Examination of the glenohumeral joint demonstrated no evidence of degenerative changes. Arthroscope was placed into the subacromial space and lateral portal established. Subacromial decompression was performed and synovectomy. Patient had significant subacromial bursitis and a large lateral acromial spur with significant fraying and disruption of the rotator cuff along the anterior lateral margin. There is minimal fibers remaining attached along the articular surface and greater than 75% of the rotator cuff was torn along its anterior third. Thus I completed the tear and carefully debrided any nonviable rotator cuff tissue. The coracoacromial ligament was released but not excised. An acromioplasty was performed. Given the location of patient's tear and significant lateral acromial spur this likely contributed to the bursal sided tear. I then debrided the greater tuberosity to cancellus bone to allow healing of the rotator cuff. A second and third incision was made and a swivel lock anchor was placed along the articular margin. This was loaded with FiberWire suture horizontal mattress was placed into the anterior aspect of the rotator cuff. I then placed the sutures into a swivel lock anchor which was then secured into the lateral which successfully brought the anterior rotator cuff tear to its appropriate position. There is no evidence of residual defect within the rotator cuff. There is good stability with shoulder range of motion. At this point I turned to subpectoralis biceps tenodesis. Longitudinal skin incision was made along the inferior third of the pectoralis major. Blunt dissection was performed identifying the inferior border of the pectoralis major. Any peripheral vasculature was carefully coagulated. I then identified the tenotomized long head of the biceps which was retrieved and brought out the wound there is significant tearing likely at the more distal portion of the biceps noted.. The tendon was then secured 2 centimeters distal to the musculotendinous junction with a #2 fiber loop and the remaining diseased portion of the biceps was excised. The Arthrex biceps tenodesis button was then secured to my biceps tendon. Under direct visualization I then cleared an area along the anterior aspect of the humerus and drilled unicortically. The button was then placed into the unicortical hole and the biceps tendon was shuttled to the anterior cortex of the humerus. I then checked stability of the button confirming maximal fixation. Utilizing the free needle one limb of the remaining FiberWire was secured to the biceps providing further fixation. The elbow was then placed through range of motion to ensure appropriate tension of the biceps with flexion and extension. The wound was then copiously irrigated with normal saline. Any peripheral vasculature was carefully coagulated with Bovie cautery. Skin was closed a running subcuticular 3-0 Monocryl suture reinforced with Dermabond and Steri- Strips. Sponge counts, instrument counts, needle counts counts were correct. Patient was then awoken from anesthesia. Transferred from the operating room table to the operating room stretcher. There was no intraoperative complications patient tolerated procedure well stable to PACU. Postoperative plan: Patient will follow-up in the office in 2 weeks. We will begin physical therapy 4 weeks postoperatively as per conservative rotator cuff repair. She will continue the abduction sling as directed.
[2017-11-20] MEDS ORDERED: ONDANSETRON HCL INJ/PF 4 MG/2 ML SDV IV PRN (14:03)
[2017-11-20] MEDS ORDERED: HYDROMORPHONE HCL INJ/PF 2 MG/ML AMPULE IV PRN (14:03)
[2017-11-20] MEDS ORDERED: OXYCODONE-ACETAMINOPHEN 5-325 MG TABLET PO PRN (14:03)
[2017-11-20] MEDS ORDERED: KETOROLAC TROMETHAMINE 60 MG/2 ML SDV ONE (14:27)
[2017-11-20] MEDS ORDERED: ROCURONIUM BROMIDE INJ 50 MG/5 ML VIAL IV ONE (14:27)
[2017-11-20] MEDS ORDERED: LIDOCAINE 2% INJ-PF (20 MG/ML) 2 ML AMPUL ONE (14:27)
[2017-11-20] MEDS ORDERED: DEXAMETHASONE SOD PHOSPHATE INJ 4 MG/1 ML VIAL ONE (14:27)
[2017-11-20] MEDS ORDERED: PHENYLEPHRINE HCL INJ/PF 10 MG/1 ML SDV ONE (14:27)
[2017-11-20] MEDS ORDERED: ONDANSETRON HCL INJ/PF 4 MG/2 ML SDV ONE (14:27)
[2017-11-20] MEDS ORDERED: SUCCINYLCHOLINE CHLORIDE INJ 200 MG/10 ML VIAL ONE (14:27)
[2017-11-20] MEDS: FENTANYL CITRATE INJ/PF 100 MCG/2 ML AMPUL ONE ×2 (15:05→15:10)
[2017-11-20] MEDS ORDERED: HYDROCODONE/ACETAMINOPHEN 5-325 MG TABLET PO PRN (15:40)
[2017-11-20] MEDS ORDERED: PROMETHAZINE HCL INJ 25 MG/1 ML VIAL ONE (15:42)
[2017-11-20 17:57] VITALS: BP 126/72
== END 2017-11-20 17:45 | disposition home or self-care (01) ==
LOC: OROUT 08:07
PROVIDERS: ATTEND Orthopaedic Surgery
PROC: 0LQ24ZZ Repair Left Shoulder Tendon, Percutaneous Endoscopic Approach (ICD-10-PCS; 2017-11-20)
PROC: 0LS40ZZ Reposition Left Upper Arm Tendon, Open Approach (ICD-10-PCS; 2017-11-20)
PROC: 0RNK4ZZ Release Left Shoulder Joint, Percutaneous Endoscopic Approach (ICD-10-PCS; principal; 2017-11-20 10:30)
DX: S43.432A Superior glenoid labrum lesion of left shoulder, initial encounter (principal); M75.52 Bursitis of left shoulder; M65.812 Other synovitis and tenosynovitis, left shoulder; F41.9 Anxiety disorder, unspecified; F32.9 Major depressive disorder, single episode, unspecified; Z79.899 Other long term (current) drug therapy; Z79.01 Long term (current) use of anticoagulants
CPT/HCPCS: 29826; 29827; 23430; 93005; 36415 ×2; 82962; 84132; 85025; 81025; 80048; 81001; 71046; 93010; 94640; C1713 ×2; J2250; J3490 ×3; J1100; J0171; J1885; J3010 ×2; J2765; J1170; J2370; J2550; J0330; J2405; J2704; S0028; A9270 ×2; J0690; J0131; 1630

== ENCOUNTER 2018-04-10 13:52 | Emergency (ER) | payer MEDICARE, MEDICAID ==
--- NOTE | 2018-04-10 14:34 | ER Document Report ---
ED Medical Screen (RME) - General Chief Complaint: Syncope Stated Complaint: RIGHT KNEE PAIN Time Seen by Provider: 04/10/18 14:29 Notes: Patient is a 47-year-old female who presents with 2 months of intermittent near syncopal episodes where she quickly stands up and feels like her vision becomes blurry. This resolved after she sits down. Today, she fell and landed on her right ankle and knee. PE: Tenderness over right anterior knee and ankle. BP 99/64, mild tachycardia. Service dog in room. I have greeted and performed a rapid initial assessment of this patient. A comprehensive ED assessment and evaluation of the patient, analysis of test results and completion of the medical decision making process will be conducted by additional ED providers. TRAVEL OUTSIDE OF THE [place] IN LAST 30 DAYS: No - Related Data Allergies/Adverse Reactions: adhesive tape [Adhesive Tape] Allergy (Verified 04/10/18 13:57) "It pulls my skin off" bismuth subsalicylate [From Pepto-Bismol] Allergy (Verified 04/10/18 13:57) Emesis indomethacin [From Indocin] Allergy (Verified 04/10/18 13:57) "My tongue swells", Emesis indomethacin sodium [From Indocin] Allergy (Verified 04/10/18 13:57) "My tongue swells", Emesis Influenza Virus Vaccines [Influenza Virus Vaccine] Allergy (Verified 04/10/18 13 :57) Itching nickel Allergy (Verified 04/10/18 13:57) oxycodone HCl [From Percocet] Allergy (Verified 04/10/18 13:57) Tongue swells, hallucinaions, nausea piroxicam [From Feldene] Allergy (Verified 04/10/18 13:57) VOMITING Past Medical History - Past Medical History Cardiac Medical History: Reports: Hx Hypertension Denies: Hx DVT Pulmonary Medical History: Reports: Hx Asthma - "Chemically induced", Hx Bronchitis, Hx Pneumonia Neurological Medical History: Reports: Hx Migraine Renal/ Medical History: Denies: Hx Peritoneal Dialysis GI Medical History: Reports: Hx Gastritis, Hx Gastroesophageal Reflux Disease, Hx Colonoscopy, Hx Endoscopy Musculoskeltal Medical History: Reports Hx Arthritis, Reports Hx Musculoskeletal Deformity - Degenerative disc disease, Reports Hx Musculoskeletal Trauma Psychiatric Medical History: Reports: Hx Anxiety, Hx Attention Deficit Hyperactivity Disorder, Hx Bipolar Disorder, Hx Depression, Hx Obsessive Compulsive Disorder, Hx Post Traumatic Stress Disorder Traumatic Medical History: Reports: Hx Fractures - Collarbone ankle toe finger boxer fracture and nose, Hx Traumatic Brain Injury Past Surgical History: Reports: Hx Adenoidectomy, Hx Cholecystectomy, Hx Oral Surgery - Most wisdom teeth pulled one wisdom tooth surgically removed, Hx Orthopedic Surgery - right hip, bilateral knees, bilateral hips as a child, Hx Tonsillectomy, Other - 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 - Immunizations Immunizations up to date: Yes Hx Diphtheria, Pertussis, Tetanus Vaccination: Yes - 01/02/2017 Physical Exam - Vital signs Vitals: Temp Pulse Resp BP Pulse Ox 98.8 F 101 H 20 99/64 L 95 04/10/18 14:05 04/10/18 14:05 04/10/18 14:05 04/10/18 14:05 04/10/18 14:05 Course - Vital Signs Vital signs: Temp Pulse Resp BP Pulse Ox 98.8 F 101 H 20 99/64 L 95 04/10/18 14:05 04/10/18 14:05 04/10/18 14:05 04/10/18 14:05 04/10/18 14:05 Doctor's Discharge - Discharge Referrals: VERENICE BROWN PA-C [Primary Care Provider] - Follow up as needed
[2018-04-10] MEDS: NORMAL SALINE 1000 ML 1,000 ML IV PRN ×2 (14:48→18:24)
[2018-04-10 15:24] LABS: ABSOLUTE BASOPHILS # (AUTO) 0.1 10^3/uL (0.0-0.2); ABSOLUTE EOSINOPHILS # (AUTO) 0.2 10^3/uL (0.0-0.6); ABSOLUTE LYMPHOCYTES (AUTO) 2.1 10^3/uL (0.5-4.7); ABSOLUTE MONOCYTES (AUTO) 0.5 10^3/uL (0.1-1.4); ABSOLUTE NEUT (AUTO) 4.1 10^3/uL (1.7-8.2); BASOPHILS % (AUTO) 0.9 % (0-2); EOSINOPHILS % (AUTO) 3.1 % (0-6); HEMATOCRIT 41.4 % (36.0-47.0); LYMPHOCYTES % (AUTO) 30.5 % (13-45); MEAN CORPUSCULAR HEMOGLOBIN 30.9 pg (27.0-33.4); MEAN CORPUSCULAR HGB CONC 33.9 g/dL (32.0-36.0); MEAN CORPUSCULAR VOLUME 91 fl (80-97); MONOCYTES % (AUTO) 7.3 % (3-13); PLATELET COUNT 209 10^3/uL (150-450); RED BLOOD COUNT 4.53 10^6/uL (3.72-5.28); RED CELL DISTRIBUTION WIDTH 13.2 % (11.5-14.0); SEGMENTED NEUTROPHILS % (AUTO) 58.2 % (42-78); TOTAL CELLS COUNTED % (AUTO) 100 %
[2018-04-10 15:28] LABS: APPEARANCE,URINE SLIGHTLY-CLOUDY; BILIRUBIN,URINE NEGATIVE (NEGATIVE); CALCIUM OXALATE CRYSTALS,URINE RARE /HPF; COLOR,URINE YELLOW; GLUCOSE, URINE NEGATIVE (NEGATIVE); KETONES,URINE NEGATIVE (NEGATIVE); LEUKOCYTE ESTERASE,URINE LARGE (NEGATIVE); NITRITE,URINE NEGATIVE (NEGATIVE); PROTEIN,URINE NEGATIVE (NEGATIVE); URINE SPECIFIC GRAVITY 1.017; UROBILINOGEN,URINE NEGATIVE mg/dL (<2.0)
[2018-04-10 15:49] LABS: ALANINE AMINOTRANSFERASE 26 U/L (9-52); ALBUMIN 4.1 g/dL (3.5-5.0); ALKALINE PHOSPHATASE 58 U/L (38-126); ANION GAP 12 (5-19); ASPARTATE AMINO TRANSFERASE 35 U/L (14-36); BILIRUBIN,DIRECT 0.5 mg/dL (0.0-0.4); BILIRUBIN,TOTAL 0.7 mg/dL (0.2-1.3); BLOOD UREA NITROGEN 15 mg/dL (7-20); CALCIUM 10.6 mg/dL (8.4-10.2); CARBON DIOXIDE 28 mmol/L (22-30); CHLORIDE 96 mmol/L (98-107); CREATINE KINASE 107 U/L (30-135); GLUCOSE 87 mg/dL (75-110); POTASSIUM 4.8 mmol/L (3.6-5.0); SODIUM 135.5 mmol/L (137-145); TOTAL PROTEIN 7.4 g/dL (6.3-8.2)
--- NOTE | 2018-04-10 15:53 | RADIOLOGY REPORT (SQ) ---
EXAM DESCRIPTION: ANKLE RIGHT COMPLETE COMPLETED DATE/TIME: 04/10/2018 3:39 pm REASON FOR STUDY: fall COMPARISON: None. NUMBER OF VIEWS: Three views. TECHNIQUE: AP, lateral, and oblique radiographic images acquired of the right ankle. LIMITATIONS: None. FINDINGS: MINERALIZATION: Normal. BONES: No acute fracture or dislocation. No worrisome bone lesions. JOINTS: No effusions. SOFT TISSUES: No soft tissue swelling. No foreign body. OTHER: No other significant finding. IMPRESSION: NEGATIVE STUDY OF THE RIGHT ANKLE. NO RADIOGRAPHIC EVIDENCE OF ACUTE INJURY. TECHNICAL DOCUMENTATION: JOB ID: [id number] [employer]- All Rights Reserved Reading location - IP/workstation name: [email or web address]
--- NOTE | 2018-04-10 15:58 | RADIOLOGY REPORT (SQ) ---
EXAM DESCRIPTION: KNEE RIGHT 4 VIEWS COMPLETED DATE/TIME: 04/10/2018 3:39 pm REASON FOR STUDY: fall COMPARISON: None. NUMBER OF VIEWS: Four views. TECHNIQUE: AP, lateral, and both oblique radiographic images acquired of the right knee. LIMITATIONS: None. FINDINGS: MINERALIZATION: Normal. BONES: No acute fracture dislocation. Patient appears to have had a prior ACL repair. JOINT: No effusion. SOFT TISSUES: No soft tissue swelling. No radio-opaque foreign body. OTHER: No other significant finding. IMPRESSION: NEGATIVE STUDY OF THE RIGHT KNEE. NO RADIOGRAPHIC EVIDENCE OF ACUTE INJURY. TECHNICAL DOCUMENTATION: JOB ID: [id number] [employer]- All Rights Reserved Reading location - IP/workstation name: [email or web address]
--- NOTE | 2018-04-10 19:24 | ER Document Report ---
ED General - General Chief Complaint: Syncope Stated Complaint: RIGHT KNEE PAIN Time Seen by Provider: 04/10/18 14:29 TRAVEL OUTSIDE OF THE [place] IN LAST 30 DAYS: No - HPI Patient complains to provider of: Syncope right knee pain Notes: Patient coming in after syncopal episode today. Patient states she stood up and started walking in the [place]ansen when she passed out. Patient states she apparently injured her right knee. Patient states she has multiple painful issues where she is on multiple narcotic pain medications for along with Neurontin to as well. Patient states no recent travel no chest pain abdominal pain fever chills nausea vomiting diarrhea. Patient states that her syncopal episodes been ongoing for greater than the last 4 weeks. Patient states she has not followed up with her primary care physician for these symptoms. Patient resting comfortably no obvious distress upon my evaluation - Related Data Allergies/Adverse Reactions: adhesive tape [Adhesive Tape] Allergy (Verified 04/10/18 13:57) "It pulls my skin off" bismuth subsalicylate [From Pepto-Bismol] Allergy (Verified 04/10/18 13:57) Emesis indomethacin [From Indocin] Allergy (Verified 04/10/18 13:57) "My tongue swells", Emesis indomethacin sodium [From Indocin] Allergy (Verified 04/10/18 13:57) "My tongue swells", Emesis Influenza Virus Vaccines [Influenza Virus Vaccine] Allergy (Verified 04/10/18 13 :57) Itching nickel Allergy (Verified 04/10/18 13:57) oxycodone HCl [From Percocet] Allergy (Verified 04/10/18 13:57) Tongue swells, hallucinaions, nausea piroxicam [From Feldene] Allergy (Verified 04/10/18 13:57) VOMITING Past Medical History - Social History Smoking Status: Former Smoker Chew tobacco use (# tins/day): No Frequency of alcohol use: Occasional Drug Abuse: None Family History: Arthritis - ra, CAD, CVA, Hyperlipidemia, Hypertension, Malignancy. denies: COPD, Thyroid Disfunction Patient has suicidal ideation: No Patient has homicidal ideation: No - Past Medical History Cardiac Medical History: Reports: Hx Hypertension Denies: Hx DVT Pulmonary Medical History: Reports: Hx Asthma - "Chemically induced", Hx Bronchitis, Hx Pneumonia Neurological Medical History: Reports: Hx Migraine Renal/ Medical History: Denies: Hx Peritoneal Dialysis GI Medical History: Reports: Hx Gastritis, Hx Gastroesophageal Reflux Disease, Hx Colonoscopy, Hx Endoscopy Musculoskeltal Medical History: Reports Hx Arthritis, Reports Hx Musculoskeletal Deformity - Degenerative disc disease, Reports Hx Musculoskeletal Trauma Psychiatric Medical History: Reports: Hx Anxiety, Hx Attention Deficit Hyperactivity Disorder, Hx Bipolar Disorder, Hx Depression, Hx Obsessive Compulsive Disorder, Hx Post Traumatic Stress Disorder Traumatic Medical History: Reports: Hx Fractures - Collarbone ankle toe finger boxer fracture and nose, Hx Traumatic Brain Injury Past Surgical History: Reports: Hx Adenoidectomy, Hx Cholecystectomy, Hx Oral Surgery - Most wisdom teeth pulled one wisdom tooth surgically removed, Hx Orthopedic Surgery - right hip, bilateral knees, bilateral hips as a child, Hx Tonsillectomy, Other - 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 - Immunizations Immunizations up to date: Yes Hx Diphtheria, Pertussis, Tetanus Vaccination: Yes - 01/02/2017 Review of Systems - Review of Systems Constitutional: No symptoms reported EENT: No symptoms reported Cardiovascular: Syncope Respiratory: No symptoms reported Gastrointestinal: No symptoms reported Genitourinary: No symptoms reported Female Genitourinary: No symptoms reported Musculoskeletal: No symptoms reported Skin: No symptoms reported Hematologic/Lymphatic: No symptoms reported Neurological/Psychological: No symptoms reported -: Yes All other systems reviewed and negative Physical Exam - Vital signs Vitals: Temp Pulse Resp BP Pulse Ox 98.8 F 101 H 20 99/64 L 95 04/10/18 14:05 04/10/18 14:05 04/10/18 14:05 04/10/18 14:05 04/10/18 14:05 Interpretation: Normal - General General appearance: Appears well, Alert - HEENT Head: Normocephalic, Atraumatic Eyes: Normal Pupils: PERRL - Respiratory Respiratory status: No respiratory distress Chest status: Nontender Breath sounds: Normal Chest palpation: Normal - Cardiovascular Rhythm: Regular Heart sounds: Normal auscultation Murmur: No - Abdominal Inspection: Normal Distension: No distension Bowel sounds: Normal Tenderness: Nontender Organomegaly: No organomegaly - Back Back: Normal, Nontender - Extremities General upper extremity: Normal inspection, Nontender, Normal color, Normal ROM , Normal temperature General lower extremity: Normal inspection, Nontender, Normal color, Normal ROM , Normal temperature, Normal weight bearing. No: Dionne's sign - Neurological Neuro grossly intact: Yes Cognition: Normal Orientation: AAOx4 [place] Coma Scale Eye Opening: Spontaneous [place] Coma Scale Verbal: Oriented S[place]y Coma Scale Motor: Obeys Commands [place] Coma Scale Total: 15 Speech: Normal Motor strength normal: LUE, RUE, LLE, RLE Sensory: Normal - Psychological Associated symptoms: Normal affect, Normal mood - Skin Skin Temperature: Warm Skin Moisture: Dry Skin Color: Normal Course - Re-evaluation Re-evalutation: 04/11/18 00:38 Laboratory results not show any significant pathology. Patient's orthostatics were positive also reproducing patient's symptoms. Possibility of decreased venous return versus dehydration. Patient was given IV fluids here patient will be given a prescription for compression stockings recommend patient follow- up with her primary care physician for further evaluation of other etiologies patient was encouraged to slowly change positions. - Vital Signs Vital signs: Temp Pulse Resp BP Pulse Ox 97.8 F 78 18 133/85 H 96 04/10/18 19:40 04/10/18 19:40 04/10/18 19:40 04/10/18 19:40 04/10/18 19:40 - Laboratory Result Diagrams: 04/10/18 14:50 04/10/18 14:50 Laboratory results interpreted by me: 04/10/18 04/10/18 14:50 14:50 Sodium 135.5 L Chloride 96 L Creatinine 1.26 H Est GFR ( Amer) 56 L Est GFR (Non-Af Amer) 46 L Calcium 10.6 H Direct Bilirubin 0.5 H Ur Leukocyte Esterase LARGE H Discharge - Discharge Clinical Impression: Orthostatic syncope Knee pain Qualifiers: Chronicity: unspecified Laterality: right Qualified Code(s): M25.561 - Pain in right knee Condition: Good Disposition: HOME, SELF-CARE Instructions: Orthostatic Hypotension ([facility]), Syncopal Episode ([facility]) Additional Instructions: Your evaluation tonight shows signs of orthostasis basically whenever you change position your blood pressure does not increase to continue to support blood flow to her head and therefore he passed out. There is multiple causes this dehydration is 1 poor venous return is a second. Please make sure you drink plenty of fluids to stay well-hydrated. I will give you a prescription for compression stockings to aid and poor venous return. Highly recommend she follow-up with your primary care physician. Please moves slowly whenever changing positions waiting 1 minute each time he goes from lying to sitting sitting to standing. There is a high probability of some your symptoms and may also be due to some of the medications that you are currently taking. Would recommend following up with your primary care physician for further evaluation of your medications. Prescriptions: Compression Socks, Medium [Futuro Restoring] 1 each MC DAILY #1 each Referrals: VERENICE BROWN PA-C [NO LOCAL MD] - Follow up as needed
[2018-04-10 19:53] VITALS: BP 133/85
[2018-04-10 20:46] LABS: URINE AMPHETAMINES SCREEN UNCONFIRMED POSITIVE; URINE BARBITURATES SCREEN NEGATIVE; URINE BENZODIAZEPINES SCREEN NEGATIVE; URINE COCAINE SCREEN NEGATIVE; URINE MARIJUANA (THC) SCREEN NEGATIVE; URINE METHADONE SCREEN NEGATIVE; URINE PHENCYCLIDINE SCREEN NEGATIVE
--- NOTE | 2018-04-10 21:48 | EKG REPORT ---
SEVERITY:- OTHERWISE NORMAL ECG - SINUS RHYTHM BORDERLINE LEFT AXIS DEVIATION : Confirmed by: Merissa Carey MD 10-Apr-2018 21:46:22
== END 2018-04-10 19:45 | disposition home or self-care (01) ==
LOC: ER 13:52
DX: R55 Syncope and collapse (principal); M25.561 Pain in right knee; I10 Essential (primary) hypertension; Z88.6 Allergy status to analgesic agent; Z88.7 Allergy status to serum and vaccine; Z87.891 Personal history of nicotine dependence; Z90.49 Acquired absence of other specified parts of digestive tract
CPT/HCPCS: 93005; 99284; 96360; 96361; 36415; 82550; 84703; 85025; 80053; 81001; 80307; 73610; 73564; 93010; J7030

== ENCOUNTER → 2019-07-03 | Outpatient (CLI) | payer MEDICARE, MEDICAID ==
[2019-07-03 16:04] LABS: ABSOLUTE LYMPHOCYTES (AUTO) 0.9 10^3/uL (0.5-4.7); ABSOLUTE MONOCYTES (AUTO) 0.1 10^3/uL (0.1-1.4); ABSOLUTE NEUT (AUTO) 6.3 10^3/uL (1.7-8.2); BASOPHILS % (AUTO) 0.3 % (0-2); EOSINOPHILS % (AUTO) 0.2 % (0-6); HEMATOCRIT 37.6 % (36.0-47.0); HEMOGLOBIN 12.5 g/dL (12.0-15.5); LYMPHOCYTES % (AUTO) 12.8 % (13-45); MEAN CORPUSCULAR HEMOGLOBIN 30.6 pg (27.0-33.4); MEAN CORPUSCULAR HGB CONC 33.4 g/dL (32.0-36.0); MEAN CORPUSCULAR VOLUME 92 fl (80-97); MONOCYTES % (AUTO) 0.9 % (3-13); PLATELET COUNT 286 10^3/uL (150-450); RED CELL DISTRIBUTION WIDTH 13.2 % (11.5-14.0); SEGMENTED NEUTROPHILS % (AUTO) 85.8 % (42-78); TOTAL CELLS COUNTED % (AUTO) 100 %; WHITE BLOOD COUNT 7.3 10^3/uL (4.0-10.5)
[2019-07-03 16:13] LABS: URIC ACID 5.1 mg/dL (2.5-7.5)
[2019-07-03 16:21] LABS: C-REACTIVE PROTEIN < 5.0 mg/L (<10.0)
[2019-07-03 16:42] LABS: ERYTHROCYTE SEDIMENTATION RATE 36 mm/hr (0-20)
== END ==
LOC: OD 14:53
PROVIDERS: ATTEND Orthopaedic Surgery
DX: M79.641 Pain in right hand (principal); M79.642 Pain in left hand
CPT/HCPCS: 36415; 84550; 85025; 85652; 86038; 86140; 86200; 86430

== ENCOUNTER 2020-05-16 21:43 | Emergency (ER) | payer MEDICARE, MEDICAID ==
[2020-05-17] MEDS ORDERED: PREDNISONE 5 MG TABLET PO ONE (00:28)
[2020-05-17] MEDS ORDERED: CHLORZOXAZONE 500 MG TABLET PO ONE (00:28)
[2020-05-17] MEDS ORDERED: CELECOXIB 200 MG CAPSULE PO ONE (00:28)
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
[2020-05-17] MEDS ORDERED: CHLORZOXAZONE 500 MG TABLET ONE (00:37)
[2020-05-17 00:44] VITALS: BP 116/72
== END 2020-05-17 00:45 | disposition home or self-care (01) ==
LOC: ER 21:43
DX: Z76.0 Encounter for issue of repeat prescription (principal); M54.9 Dorsalgia, unspecified; G89.29 Other chronic pain; F17.290 Nicotine dependence, other tobacco product, uncomplicated; J45.909 Unspecified asthma, uncomplicated; I10 Essential (primary) hypertension
CPT/HCPCS: 99281; A9270 ×3; J3490; J7512

== ENCOUNTER 2020-09-19 19:08 | Emergency (ER) | payer MEDICARE, MEDICAID ==
[2020-09-19 19:17] VITALS: BP 120/74
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
--- NOTE | 2020-09-19 20:05 | RADIOLOGY REPORT (SQ) ---
EXAM DESCRIPTION: KNEE LEFT 3 VIEWS IMAGES COMPLETED DATE/TIME: 09/19/2020 4:55 pm REASON FOR STUDY: Pain and swelling COMPARISON: 07/13/2017 NUMBER OF VIEWS: Three views. TECHNIQUE: AP, lateral, and sunrise patella radiographic images acquired of the left knee. LIMITATIONS: None. FINDINGS: MINERALIZATION: Normal. BONES: No acute fracture or dislocation. No worrisome bone lesions. JOINT: Small joint effusion. Mild tricompartmental degenerative changes with joint space narrowing a nd bony spurring. SOFT TISSUES: No soft tissue swelling. No radio-opaque foreign body. OTHER: No other significant finding. IMPRESSION: 1. Small joint effusion. No acute fracture identified. 2. Mild tricompartmental degenerative changes. TECHNICAL DOCUMENTATION: JOB ID: [id number] 2010 [employer]- All Rights Reserved Reading location - IP/workstation name: [email or web address]
[2020-09-19 20:24] LABS: ABSOLUTE EOSINOPHILS # (AUTO) 0.2 10^3/uL (0.0-0.6); ABSOLUTE LYMPHOCYTES (AUTO) 2.1 10^3/uL (0.5-4.7); ABSOLUTE MONOCYTES (AUTO) 0.7 10^3/uL (0.1-1.4); ABSOLUTE NEUT (AUTO) 6.2 10^3/uL (1.7-8.2); BASOPHILS % (AUTO) 0.4 % (0-2); LYMPHOCYTES % (AUTO) 22.9 % (13-45); TOTAL CELLS COUNTED % (AUTO) 100 %; WHITE BLOOD COUNT 9.3 10^3/uL (4.0-10.5)
[2020-09-19 20:39] LABS: EOSINOPHILS % (AUTO) 2.4 % (0-6); HEMATOCRIT 39.3 % (36.0-47.0); MEAN CORPUSCULAR HEMOGLOBIN 30.6 pg (27.0-33.4); MEAN CORPUSCULAR HGB CONC 33.1 g/dL (32.0-36.0); MEAN CORPUSCULAR VOLUME 92 fl (80-97); PLATELET COUNT 345 10^3/uL (150-450); RED BLOOD COUNT 4.26 10^6/uL (3.72-5.28); RED CELL DISTRIBUTION WIDTH 13.7 % (11.5-14.0); SEGMENTED NEUTROPHILS % (AUTO) 66.3 % (42-78)
[2020-09-19 20:45] LABS: ALBUMIN 3.9 g/dL (3.5-5.0); ALKALINE PHOSPHATASE 84 U/L (38-126); ANION GAP 5 (5-19); ASPARTATE AMINO TRANSFERASE 18 U/L (14-36); BILIRUBIN,DIRECT 0.1 mg/dL (0.0-0.4); BILIRUBIN,TOTAL 0.5 mg/dL (0.2-1.3); BLOOD UREA NITROGEN 12 mg/dL (7-20); C-REACTIVE PROTEIN 38.1 mg/L (<10.0); CALCIUM 10.3 mg/dL (8.4-10.2); CARBON DIOXIDE 34 mmol/L (22-30); CHLORIDE 99 mmol/L (98-107); GLUCOSE 111 mg/dL (75-110); POTASSIUM 4.5 mmol/L (3.6-5.0); TOTAL PROTEIN 7.5 g/dL (6.3-8.2)
== END 2020-09-19 22:30 | disposition left against medical advice (07) ==
LOC: ER 19:08
DX: M25.562 Pain in left knee (principal); M79.89 Other specified soft tissue disorders; Z53.20 Procedure and treatment not carried out because of patient's decision for unspecified reasons; Z88.8 Allergy status to other drugs, medicaments and biological substances; I10 Essential (primary) hypertension; J45.909 Unspecified asthma, uncomplicated
CPT/HCPCS: 36415; 80053; 85025; 86140; 99281

== ENCOUNTER 2020-10-01 16:30 | Emergency (ER) | payer MEDICARE, MEDICAID ==
[2020-10-01 16:38] VITALS: BP 124/87
== END 2020-10-01 18:00 | disposition left against medical advice (07) ==
LOC: ER 16:30
DX: Z53.21 Procedure and treatment not carried out due to patient leaving prior to being seen by health care provider (principal)